=== PATIENT | female | born 1980 | race African-American/Black ===

== ENCOUNTER 2016-09-13 09:40 | Emergency (ER) | payer OTHER ==
[2016-09-13 09:47] VITALS: BP 135/74; PULSE 88; TEMP 98; BMI 41.5
--- NOTE | 2016-09-13 11:02 | PDOC ---
History of Present Illness - General Chief Complaint: Pain, Acute Stated Complaint: Left leg tingling Time Seen by Provider: 09/13/16 10:10 History Source: Patient Exam Limitations: No Limitations - History of Present Illness Initial Comments: 09/13/16 12:04 With complaints of intermittent tingling to her left thigh. States is not consistent, comes and goes, and started on Sunday. Denies any recent trauma, exercise changes, any history of back pain or accident area denies fever rashes. no Bowel [employer] or bladder problems. 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 She and her any treatment for resolve Occurred: reports: other (3 days ) Severity: reports: mild Pain Location: reports: lower extremity (left thigh) Method of Injury: Yes: unknown Modifying Factors: improves with: None Loss of Consciousness: no loss of consciousness Associated Symptoms (Fall): denies symptoms Past History - Travel Traveled outside of the country in the last 30 days: No Close contact w/someone who was outside of country & ill: No - Past Medical History Allergies/Adverse Reactions: Allergies Allergy/AdvReac Type Severity Reaction Status Date / Time No Known Allergies Allergy Verified 09/13/16 09:47 Home Medications: Ambulatory Orders NK [No Known Home Medication] 09/13/16 Diabetes: Yes Thyroid Disease: Yes - Psycho/Social/Smoking Cessation Hx Anxiety: No Suicidal Ideation: No Smoking History: Current every day smoker Have you smoked in the past 12 months: Yes Number of Cigarettes Smoked Daily: 20 Information on smoking cessation initiated: Yes 'Breaking Loose' booklet given: 09/13/16 Hx Alcohol Use: No Drug/Substance Use Hx: No Substance Use Type: None Trauma Specific PMHX - Complaint Specific PMHX Back Injury: No Neck Injury: No Review of Systems - Review of Systems Able to Perform ROS?: Yes Is the patient limited Arabic proficient: Yes Constitutional: Yes: See HPI. No: Symptoms Reported, Chills, Fever HEENTM: No: Symptoms Reported Respiratory: No: Symptoms reported Musculoskeletal: Yes: Symptoms Reported, See HPI, Muscle Pain, Other (denies any swelling, redness, cording, no recent travel and no other risk factors for DVT than obesity) Neurological: Yes: Symptoms reported, See HPI, Numbness. No: Paresthesia All Other Systems: Reviewed and Negative *Physical Exam - Vital Signs Last Vital Signs Temp Pulse Resp BP Pulse Ox 98 F 88 18 135/74 98 09/13/16 09:45 09/13/16 09:45 09/13/16 09:45 09/13/16 09:45 09/13/16 09:45 - Physical Exam General Appearance: Yes: Nourished, Appropriately Dressed. No: Apparent Distress (ambulatory without limp) HEENT: positive: [place], Normal ENT Inspection, Normal Voice, TMs Normal, Pharynx Normal Neck: positive: Supple. negative: Tender Extremity: positive: Normal Capillary Refill, Normal Inspection, Normal Range of Motion. negative: Tender (is reproduced along the medial or lateral aspect of leg, hip or knee. Pelvis is stable without pain. Has no lymphadenopathy to groin. Right thigh is equal to left thigh in girth, no erythema swelling or tenderness reproduced along any of the quadriceps muscles or hamstring muscles. Is able to lift leg off the bed without difficulty, strong pushes and pulls with good sensation distal to thigh) Integumentary: positive: Normal Color, Dry, Warm Neurologic: positive: re dye hand II-XII NML intact, Fully Oriented, Alert, Normal Mood/ Affect, Normal Response, Motor Strength 5/5 Progress Note - Progress Note Progress Note: Intermittent tingling to left thigh of unknown origin. Encouraged to rest, elevate leg, NSAIDs for anti-inflammatory purpose and follow-up with orthopedist if symptoms persist. Return if symptoms worsen with swelling, fever , extension of numbness or other neurologic changes. *DC/Admit/Observation/Transfer Diagnosis at time of Disposition: Numbness and tingling of left leg - Discharge Dispostion Disposition: HOME Condition at time of disposition: Stable Admit: No - Referrals Referrals: Mars Posadas MD [Staff Physician] - - Patient Instructions Printed Discharge Instructions: DI for Numbness/tingling Additional Instructions: Rest, ice to area on and off for 15 minutes 4-6 times a day Avoid heavy lifting or exercise until pain and swelling is resolved or until further directed Keep area highly elevated to reduce swelling Use splints/Derek wrap as directed Followup with orthopedist in one to 2 days if not improving, if significantly improved may wait one week for followup with orthopedist May use ibuprofen 2-200 mg tablets every 6 hours as needed for pain - Post Discharge Activity Work/School Note: Back to Work
[2016-09-13] MEDS ORDERED: IBUPROFEN 600 MG TABLET (FP) PO ONE ×2 (11:07)
== END 2016-09-13 11:10 | disposition home or self-care (01) ==
LOC: JERFT 09:40
DX: R20.2 Paresthesia of skin (principal)
CPT/HCPCS: 99281-25

== ENCOUNTER 2021-11-04 11:49 | Emergency (ER) | payer OTHER ==
[2021-11-04] MEDS ORDERED: ACETAMINOPHEN 1000 MG/100 ML BAG IVPB ONE (12:09)
[2021-11-04] MEDS ORDERED: ONDANSETRON 4 MG/2 ML VIAL IVPUSH ONE (12:09)
[2021-11-04] MEDS ORDERED: SODIUM CHLORIDE 0.9% 500 ML INFUS.BAG IV ONE (12:11)
[2021-11-04] MEDS ORDERED: METOCLOPRAMIDE HCL INJECTION 10 MG/2 ML VIAL IVPB ONE (12:24)
[2021-11-04] MEDS ORDERED: ONDANSETRON 4 MG/2 ML VIAL ONE (12:47)
[2021-11-04] MEDS ORDERED: ACETAMINOPHEN INJECTION 100 ML IVPB ONE (12:47)
[2021-11-04 13:04] VITALS: BMI 34.4
[2021-11-04] MEDS ORDERED: METOCLOPRAMIDE HCL INJECTION 10 MG/2 ML VIAL ONE (13:12)
[2021-11-04 13:34] LABS: URINE APPEARANCE CLOUDY; URINE BILIRUBIN NEGATIVE (NEGATIVE); URINE COLOR YELLOW; URINE GLUCOSE (UA) NEGATIVE (NEGATIVE); URINE KETONE 1+ (NEGATIVE); URINE LEUK ESTERASE NEGATIVE (NEGATIVE); URINE NITRITE NEGATIVE (NEGATIVE); URINE PROTEIN TRACE (NEGATIVE)
[2021-11-04 14:04] LABS: BASO % 0.8 % (0-2.0); EOS % 0.2 % (0-4.5); HEMOGLOBIN 10.8 GM/dL (10.7-15.3); LYMPH % 5.5 % (8-40); MCH 24.5 pg (25.7-33.7); MCHC 32.8 g/dl (32.0-36.0); MEAN CELL VOLUME 74.8 fl (80-96); MONO % 13.6 % (3.8-10.2); NEUT % 79.9 % (42.8-82.8); PLATELET COUNT 276 10^3/uL (134-434); RBC 4.42 M/mm3 (3.60-5.2); RDW 16.4 % (11.6-15.6); WHITE BLOOD COUNT 7.9 K/mm3 (4.0-10.0)
[2021-11-04 14:15] LABS: INR 1.22 (0.83-1.09); PROTHROMBIN TIME (PATIENT) 14.1 SEC (9.7-13.0)
[2021-11-04 14:16] LABS: ALBUMIN 3.6 g/dl (3.4-5.0); BLOOD UREA NITROGEN 8.1 mg/dL (7-18); CALCIUM 8.7 mg/dL (8.5-10.1); MAGNESIUM 1.5 mg/dL (1.8-2.4)
[2021-11-04 14:17] LABS: ACTIVATED PTT 26.2 SECONDS (25.2-36.5)
[2021-11-04 14:21] LABS: BILIRUBIN,TOTAL 0.2 mg/dL (0.2-1); TOT PROT 6.9 g/dl (6.4-8.2)
[2021-11-04 14:27] LABS: CREATININE 0.8 mg/dL (0.55-1.3)
[2021-11-04 14:46] VITALS: BP 109/50; PULSE 86; TEMP 98.6
== END 2021-11-04 15:07 | disposition home or self-care (01) ==
LOC: JER 11:49
PROC: 3E0333Z Introduction of Anti-inflammatory into Peripheral Vein, Percutaneous Approach (ICD-10-PCS; principal; 2021-11-04)
PROC: 3E033GC Introduction of Other Therapeutic Substance into Peripheral Vein, Percutaneous Approach (ICD-10-PCS; 2021-11-04)
PROC: 3E033GC Introduction of Other Therapeutic Substance into Peripheral Vein, Percutaneous Approach (ICD-10-PCS; 2021-11-04)
DX: R51.9 Headache, unspecified (principal)
CPT/HCPCS: 36415; 70450-TC; 80053; 81003; 82550; 83735; 84443; 84484; 84703; 85025; 85610; 85730; 87086; 93005; 93010; 99285-25

== ENCOUNTER 2024-02-09 19:18 | Emergency (ER) | payer OTHER ==
[2024-02-09 19:29] VITALS: TEMP 98.1; BMI 40.1
[2024-02-09 20:24] LABS: BASO % 0.9 % (0-2.0); EOS % 1.5 % (0-4.5); HEMATOCRIT 33.2 % (32.4-45.2); HEMOGLOBIN 10.7 GM/dL (10.7-15.3); LYMPH % 30.8 % (8-40); MCH 24.2 pg (25.7-33.7); MCHC 32.1 g/dl (32.0-36.0); MEAN CELL VOLUME 75.3 fl (80-96); MONO % 4.9 % (3.8-10.2); NEUT % 61.9 % (42.8-82.8); PLATELET COUNT 311 10^3/uL (134-434); RBC 4.41 M/mm3 (3.60-5.2); RDW 16.2 % (11.6-15.6); WHITE BLOOD COUNT 11.1 K/mm3 (4.0-10.0)
[2024-02-09 20:47] LABS: POTASSIUM 3.6 mmol/L (3.5-5.1)
[2024-02-09 20:49] LABS: ALBUMIN 3.2 g/dl (3.4-5.0); BLOOD UREA NITROGEN 7.3 mg/dL (7-18); CALCIUM 8.5 mg/dL (8.5-10.1)
[2024-02-09 20:50] LABS: MAGNESIUM 1.7 mg/dL (1.8-2.4)
[2024-02-09 20:54] LABS: BILIRUBIN,TOTAL 0.2 mg/dL (0.2-1); TOT PROT 6.2 g/dl (6.4-8.2)
[2024-02-09 20:57] LABS: N-TERMINAL BNP 50.2 pg/ml (5-125)
[2024-02-09 21:19] LABS: URINE APPEARANCE CLEAR; URINE BILIRUBIN NEGATIVE (NEGATIVE); URINE COLOR YELLOW; URINE GLUCOSE (UA) NEGATIVE (NEGATIVE); URINE KETONE NEGATIVE (NEGATIVE); URINE LEUK ESTERASE NEGATIVE (NEGATIVE); URINE NITRITE NEGATIVE (NEGATIVE); URINE PROTEIN NEGATIVE (NEGATIVE)
[2024-02-09] MEDS: MAGNESIUM SULF 50% (8.12 MEQ/2 ML-1 GM VIAL) IVPB ONE (21:22)
[2024-02-09] MEDS ORDERED: MAGNESIUM OXIDE 400 MG TABLET (FP) ONE (21:23)
[2024-02-09] MEDS: MAGNESIUM OXIDE 400 MG TABLET (FP) PO ONE (21:25)
[2024-02-09 21:44] VITALS: BP 123/69; PULSE 77; RESP 16
== END 2024-02-09 21:47 | disposition home or self-care (01) ==
LOC: JER 19:18
DX: R60.0 Localized edema (principal); M79.89 Other specified soft tissue disorders; M79.662 Pain in left lower leg
CPT/HCPCS: 36415; 80053; 81003; 83735; 83880; 85025; 93970-TC; 99284-25